=== PATIENT | male | born 1955 | race Hispanic/Latino ===

== ENCOUNTER 2018-09-06 09:48 | Outpatient (CLI) | payer MEDICARE ==
--- NOTE | 2018-09-06 12:05 | XRay Report ---
LUMBOSACRAL SPINE, 5 VIEWS HISTORY: Lower back pain. FINDINGS: No comparisons at this facility. There has been previous fusion of the posterior spinous processes at L2-3 and L3-4, correlate with history. There is mild straightening of the normal lordosis. Mild dext rocurvature of the lumbar spine is identified on the AP image. There is moderate to severe degenerati ve disc disease and facet arthropathy at all levels. An anterior bridging osteophyte is noted at L1-2 . There is moderate facet hypertrophy at L2-3, L3-4 and L4-5. Flexion and extension views demonstrate no evidence for instability. No evidence for fracture or suspicious bony lesion. 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 IMPRESSION: Stable appearance of the posterior fusion changes as described. Moderate to severe multilevel degenerative disc disease and facet arthropathy. Mild dextroscoliosis of the lumbar spine. No acute process. Signer Name: Dhaval Frank Jr, MD Signed: 09/06/2018 11:00 AM Workstation Name: [id number]
== END 2018-09-06 09:49 | disposition home or self-care (01) ==
LOC: SPVIMAG 09:48
PROVIDERS: ATTEND Orthopaedic Surgery Orthopaedic Surgery of the Spine
DX: M51.36 Other intervertebral disc degeneration, lumbar region (principal); M43.26 Fusion of spine, lumbar region; M41.86 Other forms of scoliosis, lumbar region; M25.78 Osteophyte, vertebrae
CPT/HCPCS: 72100